=== PATIENT | female | born 1950 | race Two or more races ===

== ENCOUNTER 2017-10-01 22:02 | Emergency (ER) | payer OTHER ==
[~2017-10-01] VITALS: Ht 152.4 cm; Wt 54.4 kg
[~2017-10-01 22:02] MED LIST: ALPR0.5T7; LEFL20TA16; MORP1TAB13; OXYC325T14; PREDNISONE TAB 5MG; PROMETHAZINE 25 MG; TEMA30CA
[2017-10-02] MEDS ORDERED: ALBUTEROL SULF 2.5 MG/0.5ML(0.5%) NEB SOLN NEB ONE (02:45)
[2017-10-02] MEDS ORDERED: methylPREDNISolone SOD SUCC 125 MG/2 ML VL IV ONE (02:45)
[2017-10-02] MEDS ORDERED: IPRATROPIUM BROM 0.5 MG/2.5ML INH SOL NEB ONE (02:45)
[2017-10-02 05:01] VITALS: BP 116/71
== END 2017-10-02 07:53 | disposition home or self-care (01) ==
LOC: EDBD 22:02 → ER 22:02
DX: J44.1 Chronic obstructive pulmonary disease with (acute) exacerbation (principal); F41.9 Anxiety disorder, unspecified; M19.90 Unspecified osteoarthritis, unspecified site; M32.9 Systemic lupus erythematosus, unspecified; Z99.81 Dependence on supplemental oxygen
CPT/HCPCS: 71045; 94640; 96374; 99284; J2930